=== PATIENT | female | born 1950 | race Two or more races ===

== ENCOUNTER 2024-03-05 22:00 | Inpatient (IN) | payer OTHER ==
[~2024-03-05] VITALS: Ht 167.6 cm; Wt 69.9 kg
[2024-03-05 22:43] LABS: BASOPHILS % (AUTO) 0.7 % (0.0-2.0); EOSINOPHILS # (AUTO) 0.1 K/uL (0.0-0.7); EOSINOPHILS % (AUTO) 1.3 % (0.0-6.0); HEMATOCRIT 39 % (33-45); LYMPHOCYTES # (AUTO) 1.4 K/uL (0.8-4.8); LYMPHOCYTES % (AUTO) 22.8 % (20.0-44.0); MEAN CORPUSCULAR HEMOGLOBIN 34 PG (26.0-33.0); MEAN CORPUSCULAR HGB CONC 34 g/dl (31.0-36.0); MEAN CORPUSCULAR VOLUME 100 fL (82-100); MONOCYTES # (AUTO) 0.4 K/uL (0.1-1.30); MONOCYTES % (AUTO) 6.8 % (2.0-12.0); NEUTROPHILS # (AUTO) 4.2 K/uL (1.8-8.9); NEUTROPHILS % (AUTO) 68.4 % (43.0-81.0); PLATELET COUNT (AUTO) 160 K/uL (150-450); RED BLOOD CELL COUNT(AUTO) 3.89 MIL/uL (4.0-5.2); RED CELL DISTRIBUTION WIDTH 15.5 % (11.5-15.0); WHITE BLOOD COUNT (AUTO) 6.2 K/uL (4.3-11.0)
[2024-03-05 22:54] LABS: CALCIUM, SERUM 8.4 mg/dL (8.5-10.1); CARBON DIOXIDE 29 mmol/L (21-32); CHLORIDE 107 mmol/L (98-107); GLUCOSE 104 mg/dL (74-106); POTASSIUM 3.9 mmol/L (3.5-5.1); SODIUM SERUM 140 mmol/L (136-145); UREA NITROGEN, BLOOD 12 mg/dL (7-18)
[2024-03-05 23:07] LABS: NT-PRO BNP 7766 pg/mL (0-125)
[2024-03-06] MEDS ORDERED: Z GUARD REMEDY 4 OZ OINT TP PRN (01:00)
[2024-03-06] MEDS ORDERED: MAG HYDROX/AL HYDROX/SIMETH 30 ML UDC PO PRN (01:00)
[2024-03-06] MEDS ORDERED: MAGNESIUM HYDROXIDE 30 ML UDC PO PRN (01:00)
[2024-03-06] MEDS ORDERED: ACETAMINOPHEN 325 MG TABLET PO PRN (01:00)
[2024-03-06] MEDS ORDERED: ZOLPIDEM TARTRATE 5 MG TABLET PO PRN (01:00)
[2024-03-06] MEDS ORDERED: ONDANSETRON HCL/PF 4 MG/2 ML VIAL IVP PRN (01:00)
[2024-03-06] MEDS: ASPIRIN EC 325 MG TABLET.DR PO ONE (01:46)
[2024-03-06] MEDS ORDERED: ASPIRIN EC 325 MG TABLET.DR PO ONE (01:56)
[2024-03-06 03:00] VITALS: BP 119/80; TEMP 97.8; O2SAT 96
[2024-03-06] MEDS ORDERED: FUROSEMIDE 20 MG/2 ML VIAL IV SCH (03:00)
[2024-03-06] MEDS: ENOXAPARIN SODIUM 30 MG/0.3 ML DISP.SYRIN SQ SCH (03:39)
[2024-03-06 07:00] VITALS: BP 111/69; TEMP 98.1; O2SAT 98
[2024-03-06] MEDS: ASPIRIN 81 MG TAB.CHEW PO SCH ×2 (08:26→14:21)
[2024-03-06] MEDS ORDERED: LOSA25TA27 PO (08:27)
[2024-03-06] MEDS ORDERED: ASPI-1169 PO (08:27)
[2024-03-06] MEDS ORDERED: METO25TA4 PO (08:27)
[2024-03-06] MEDS ORDERED: APIX5TAB PO (08:27)
[2024-03-06] MEDS ORDERED: ATOR80TA PO (08:27)
[2024-03-06] MEDS: methylPREDNISolone SOD SUCC 40 MG/ML VIAL IV SCH (10:18)
[2024-03-06 12:00] VITALS: BP 118/88; TEMP 98.4; O2SAT 98
[2024-03-06 13:50] VITALS: BP 120/77; TEMP 98.2; O2SAT 97
[2024-03-06] MEDS: ATORVASTATIN 40 MG TABLET PO SCH (14:21)
[2024-03-06] MEDS: APIXABAN 5 MG TABLET PO SCH (14:22)
[2024-03-06] MEDS: METOPROLOL SUCCINATE 25 MG TAB.SR.24H PO SCH (14:22)
[2024-03-06] MEDS: DILTIAZEM HCL CD 240 MG PO SCH (14:23)
[2024-03-06 16:00] VITALS: BP 120/77; TEMP 98.6; O2SAT 96
[2024-03-06] MEDS: DIGOXIN INJ 0.5 MG/2 ML AMPUL IV SCH (17:13)
[2024-03-07 08:26] LABS: BASOPHILS % (AUTO) 0.1 % (0.0-2.0); HEMATOCRIT 36 % (33-45); HEMOGLOBIN 12.3 g/dL (11.5-14.8); LYMPHOCYTES # (AUTO) 0.6 K/uL (0.8-4.8); LYMPHOCYTES % (AUTO) 14.4 % (20.0-44.0); MEAN CORPUSCULAR HEMOGLOBIN 33 PG (26.0-33.0); MEAN CORPUSCULAR HGB CONC 34 g/dl (31.0-36.0); MEAN CORPUSCULAR VOLUME 99 fL (82-100); MONOCYTES # (AUTO) 0.1 K/uL (0.1-1.30); MONOCYTES % (AUTO) 1.6 % (2.0-12.0); NEUTROPHILS # (AUTO) 3.3 K/uL (1.8-8.9); NEUTROPHILS % (AUTO) 83.9 % (43.0-81.0); PLATELET COUNT (AUTO) 172 K/uL (150-450); RED BLOOD CELL COUNT(AUTO) 3.69 MIL/uL (4.0-5.2); RED CELL DISTRIBUTION WIDTH 15.4 % (11.5-15.0); WHITE BLOOD COUNT (AUTO) 3.9 K/uL (4.3-11.0)
[2024-03-07 09:56] LABS: CALCIUM, SERUM 7.7 mg/dL (8.5-10.1); CREATININE 0.8 mg/dL (0.6-1.3); MAGNESIUM 1.9 mg/dL (1.8-2.4); PHOSPHORUS 3.1 mg/dL (2.5-4.9); POTASSIUM 4.3 mmol/L (3.5-5.1)
[2024-03-07] MEDS: DIGOXIN 0.125 MG TABLET PO SCH (12:48)
[2024-03-07 16:42] VITALS: BP 135/51; TEMP 97.6; O2SAT 96
[2024-03-07 21:53] VITALS: BP 149/63; TEMP 98.4; O2SAT 100
[2024-03-08 05:19] VITALS: BP 133/57; TEMP 98.1; O2SAT 99
[2024-03-08 08:15] LABS: BASOPHILS % (AUTO) 0.1 % (0.0-2.0); HEMATOCRIT 37 % (33-45); HEMOGLOBIN 12.5 g/dL (11.5-14.8); LYMPHOCYTES # (AUTO) 0.5 K/uL (0.8-4.8); LYMPHOCYTES % (AUTO) 6.5 % (20.0-44.0); MEAN CORPUSCULAR HEMOGLOBIN 34 PG (26.0-33.0); MEAN CORPUSCULAR HGB CONC 34 g/dl (31.0-36.0); MEAN CORPUSCULAR VOLUME 100 fL (82-100); MONOCYTES # (AUTO) 0.2 K/uL (0.1-1.30); MONOCYTES % (AUTO) 2.6 % (2.0-12.0); NEUTROPHILS # (AUTO) 6.5 K/uL (1.8-8.9); NEUTROPHILS % (AUTO) 90.8 % (43.0-81.0); PLATELET COUNT (AUTO) 173 K/uL (150-450); RED CELL DISTRIBUTION WIDTH 15.3 % (11.5-15.0); WHITE BLOOD COUNT (AUTO) 7.2 K/uL (4.3-11.0)
[2024-03-08] MEDS ORDERED: PANT40TA2 PO (09:47)
[2024-03-08] MEDS ORDERED: SUCR1TAB PO (09:47)
[2024-03-08] MEDS ORDERED: MAG30ORA PO (09:47)
[2024-03-08 10:20] LABS: CALCIUM, SERUM 7.6 mg/dL (8.5-10.1); CREATININE 0.8 mg/dL (0.6-1.3); POTASSIUM 4.1 mmol/L (3.5-5.1)
[2024-03-08] MEDS: SUCRALFATE 1 G/10 ML UDC GT SCH (21:03)
[2024-03-08 21:37] VITALS: BP 145/71; TEMP 98.2; O2SAT 100
[2024-03-09 05:29] VITALS: BP 135/65; TEMP 98.1; O2SAT 97
[2024-03-09 07:21] LABS: BASOPHILS % (AUTO) 0.2 % (0.0-2.0); HEMATOCRIT 35 % (33-45); HEMOGLOBIN 11.9 g/dL (11.5-14.8); LYMPHOCYTES # (AUTO) 0.3 K/uL (0.8-4.8); LYMPHOCYTES % (AUTO) 5.9 % (20.0-44.0); MEAN CORPUSCULAR HEMOGLOBIN 34 PG (26.0-33.0); MEAN CORPUSCULAR HGB CONC 34 g/dl (31.0-36.0); MEAN CORPUSCULAR VOLUME 99 fL (82-100); MONOCYTES # (AUTO) 0.2 K/uL (0.1-1.30); MONOCYTES % (AUTO) 4.4 % (2.0-12.0); NEUTROPHILS % (AUTO) 89.5 % (43.0-81.0); PLATELET COUNT (AUTO) 159 K/uL (150-450); RED BLOOD CELL COUNT(AUTO) 3.54 MIL/uL (4.0-5.2); RED CELL DISTRIBUTION WIDTH 15.3 % (11.5-15.0); WHITE BLOOD COUNT (AUTO) 5.6 K/uL (4.3-11.0)
[2024-03-09] MEDS: PANTOPRAZOLE 40 MG TABLET.DR PO SCH (07:35)
[2024-03-09 09:00] VITALS: BP 138/64
== END 2024-03-09 12:54 | DRG 392 ==
LOC: ER 22:02 → TELE 03-06 00:02 → TELE-TD 03-06 14:02 → MEDSG1 03-07 10:12
PROVIDERS: ADMIT Nurse Practitioner Acute Care; ATTEND Internal Medicine
PROC: 0DJ08ZZ Inspection of Upper Intestinal Tract, Via Natural or Artificial Opening Endoscopic (ICD-10-PCS; principal; 2024-03-08)
DX: K29.70 Gastritis, unspecified, without bleeding (principal); Z59.00 Homelessness unspecified; I11.0 Hypertensive heart disease with heart failure; E78.5 Hyperlipidemia, unspecified; I25.10 Atherosclerotic heart disease of native coronary artery without angina pectoris; I48.0 Paroxysmal atrial fibrillation; I50.9 Heart failure, unspecified; Z86.16 Personal history of COVID-19; Z86.73 Personal history of transient ischemic attack (TIA), and cerebral infarction without residual deficits; Z95.5 Presence of coronary angioplasty implant and graft; Z71.6 Tobacco abuse counseling; Z98.84 Bariatric surgery status; R13.10 Dysphagia, unspecified; R10.13 Epigastric pain; R74.8 Abnormal levels of other serum enzymes; K21.00 Gastro-esophageal reflux disease with esophagitis, without bleeding; F17.210 Nicotine dependence, cigarettes, uncomplicated; Z95.810 Presence of automatic (implantable) cardiac defibrillator; J44.9 Chronic obstructive pulmonary disease, unspecified
CPT/HCPCS: 36415; 71045-TC; 80048-TC; 80061-TC; 83735-TC; 83880; 84100-TC; 84484-TC; 85025-TC; 93307-TC; 97110-TC; 97116-TC; 97530-TC; G0378; J1160; J1650; J2704; J2919